=== PATIENT | male | born 1940 | race Caucasian/White ===

== ENCOUNTER 2019-11-14 01:48 | Day surgery (SDC) | payer MEDICARE, SELFPAY ==
[2019-11-10 10:21] VITALS: BMI 23.5
[2019-11-14 06:45] VITALS: BP 224/102; PULSE 79; RESP 14; TEMP 36.4; O2SAT 99; BMI 20.6
[2019-11-14 07:15] VITALS: BP 210/87
[2019-11-14] MEDS: LACTATED RINGERS 1,000 ML 150 ML IV CONT (07:44)
--- NOTE | 2019-11-14 07:57 | P.PNAN_ITS ---
Anes - Initial Pre Proc Eval Procedure: Operation Date: 11/14/19 08:00 Proposed Procedures p Esophagogastroduodenoscopy - Josh Jamison MD Date/Time: 11/14/19 07:57 Surgeon: Josh Jamison MD Pre Op Diagnosis: Gastric Ulcer Patient Data Age: 79 Gender: M Height: 5 ft 6 in Weight: 58 kg Last Vital Signs Temp 97.6 F 11/14/19 06:45 Pulse 79 11/14/19 06:45 Resp 14 11/14/19 06:45 BP 210/87 H 11/14/19 07:15 Pulse Ox 99 11/14/19 06:45 Allergies Allergy/AdvReac Type Severity Reaction Status Date / Time No Known Allergies Allergy Verified 11/14/19 07:32 Home Medications Medication Instructions Recorded Confirmed Type carbidopa-levodopa [Sinemet] 3 tablet PO HS 09/13/19 11/14/19 History carbidopa-levodopa [Sinemet] 4 tablet PO TID 09/13/19 11/14/19 History hydralazine 10 mg PO PRN PRN 09/13/19 11/14/19 History olmesartan [Benicar] 40 mg PO DAILY 09/13/19 11/14/19 History pantoprazole [Protonix] 40 mg PO BID #60 tablet 09/17/19 11/14/19 Rx amlodipine 5 mg PO DAILY 11/10/19 11/14/19 History Patient hx anesthesia problems: none Family hx anesthesia problems: none PMFSH Past Medical History Medical History (Updated 09/13/19 @ 20:32 by Myrna Pena NP) Hip fracture requiring operative repair HTN (hypertension), malignant Parkinsons disease S/P ORIF (open reduction internal fixation) fracture Bilateral hips Surgical History Surgical History (Updated 09/13/19 @ 20:32 by Myrna Pena NP) H/O shoulder surgery Left Family History Family History (Updated 09/13/19 @ 20:33 by Myrna Pena NP) Father Acute myocardial infarction Hypertension Mother Natural Social History Social History (Updated 09/13/19 @ 20:33 by Myrna Pena NP) Social History: Patient lives with his Misty and stated that she is 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 He desires to be a full code. He has 4 sons. He is retired from the [employer]. Lifelong nonsmoker and no alcohol. Smoking status: Never smoker Alcohol intake: never Substance use: never Gender identity (if verbalized by the patient): Male Spiritual care concerns: No Agree to blood products: Yes Anes - Eval Final PreProcedure Day of Procedure 11/14/19 07:57 Patient weight: normal Heart: regular rate and rhythm Lungs: clear to auscultation Airway: Mallampati scale class III Neurological: alert and oriented Last oral intake: >/= 8 hours ASA classification: III Emergent: no Anesthetic plan: proceed Anesthesia type and monitoring: general GIVS and standard monitoring Informed Consent: The patient's anesthetic plan and its attendant risks and benefits were discussed with the patient/family/POA. Questions were solicited and answers provided to the satisfaction of the patient/family/POA.
--- NOTE | 2019-11-14 08:13 | SUR.PREOP ---
[address] LO OF PT'S CURRENT B/P. BE VALDIVIA
--- NOTE | 2019-11-14 08:16 | P.CONGI_ITS ---
Assessment and Plan Additional Plan This is an 79-year-old white male patient I am asked to see at the request of Dr. Marcus. Patient had GI bleeding in August of 2019 was found to have a gastric ulcer. He presents today for follow-up EGD. He states his current weight appetite bowel movements are normal. He has had no additional bleeding he eats well. Denies abdominal pain. Past medical history is significant for dementia, Parkinson's disease. Hypertension. He has been treated for gout. As a distant history of a left hip fracture. Medications include MiraLax, Sinemet, Benicar, hydralazine, pantoprazole, no known drug allergies. Physical exam reveals patient to be alert. Vital signs stable. HEENT exam unremarkable. Lungs are clear to auscultation and percussion. Heart is without murmur. Abdomen is soft and nontender. Impression 1. Gastric ulcer. Plan is for follow-up EGD to document healing at this time. 2. Parkinson's disease. 3. Dementia. Plan is for EGD. Avoid nonsteroidal anti-inflammatory agents. Protonix may be given p.r.n. if ulcer is healed. GI Consult Note Consult date/time: 11/14/19 08:16 HPI: Rashawn Lane is a 79 year old male [facility] Past Medical History Medical History (Updated 09/13/19 @ 20:32 by Myrna Pena NP) Hip fracture requiring operative repair HTN (hypertension), malignant Parkinsons disease S/P ORIF (open reduction internal fixation) fracture Bilateral hips Surgical History Surgical History (Updated 09/13/19 @ 20:32 by Myrna Pena NP) H/O shoulder surgery Left Family History Family History (Updated 09/13/19 @ 20:33 by Myrna Pena NP) Father Acute myocardial infarction Hypertension Mother Natural Social History Social History (Updated 09/13/19 @ 20:33 by Myrna Pena NP) Social History: Patient lives with his Misty and 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 He desires to be a full code. He has 4 sons. 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 Lifelong nonsmoker and no alcohol. Smoking status: Never smoker Alcohol intake: never Substance use: never Gender identity (if verbalized by the patient): Male Spiritual care concerns: No Agree to blood products: Yes Meds Home Medications and Allergies Home Medications Medication Instructions Recorded Confirmed Type carbidopa-levodopa [Sinemet] 3 tablet PO HS 09/13/19 11/14/19 History carbidopa-levodopa [Sinemet] 4 tablet PO TID 09/13/19 11/14/19 History hydralazine 10 mg PO PRN PRN 09/13/19 11/14/19 History olmesartan [Benicar] 40 mg PO DAILY 09/13/19 11/14/19 History pantoprazole [Protonix] 40 mg PO BID #60 tablet 09/17/19 11/14/19 Rx amlodipine 5 mg PO DAILY 11/10/19 11/14/19 History Allergies Allergy/AdvReac Type Severity Reaction Status Date / Time No Known Allergies Allergy Verified 11/14/19 07:32 Vital Signs Vital Signs - 24 hr 11/14/19 06:45 11/14/19 07:15 Temperature 36.4 C Pulse Rate 79 Respiratory Rate 14 Blood Pressure 224/102 H 210/87 H Pulse Oximetry 99
[2019-11-14 08:31] VITALS: BP 181/95; PULSE 66; RESP 21; O2SAT 100
[2019-11-14 08:41] VITALS: BP 189/97; PULSE 66; RESP 20; O2SAT 100
[2019-11-14 08:51] VITALS: BP 214/111; PULSE 70; RESP 20; O2SAT 100
--- NOTE | 2019-11-14 09:04 | SUR.PHASEII ---
Patient continues to remain hypertensive postoperatively. Dr. Mustafa (anesthesiologist) made aware of blood pressure readings. Orders for patient to take home blood pressure meds. Spouse states understanding. Spouse also gave remainder of Olmesartan in recovery area before discharge.
--- NOTE | 2019-11-14 09:06 | SUR.PHASEII ---
Education on Covid given to pt and spouse.
== END 2019-11-14 09:13 | disposition home or self-care (01) ==
PROVIDERS: PCP Family Medicine; Visit Provider Internal Medicine Gastroenterology
PROC: 0DJ08ZZ Inspection of Upper Intestinal Tract, Via Natural or Artificial Opening Endoscopic (ICD-10-PCS; CPT 43235; principal; 2019-11-14 08:00)
DX: Z09 Encounter for follow-up examination after completed treatment for conditions other than malignant neoplasm (principal); Z87.11 Personal history of peptic ulcer disease; G20 Parkinson's disease; F02.80 Dementia in other diseases classified elsewhere, unspecified severity, without behavioral disturbance, psychotic disturbance, mood disturbance, and anxiety; I10 Essential (primary) hypertension
CPT/HCPCS: 43239; 87081; J2704; J7120